=== PATIENT | male | born 1955 | race Caucasian/White ===

== ENCOUNTER 2018-03-10 16:54 | Inpatient (IN) | payer MEDICAID, OTHER ==
[~2018-03-10] VITALS: Ht 160 cm; Wt 62.6 kg
[2018-03-10] MEDS ORDERED: CLOPIDOGREL 75MG TABLET PO ONE (19:00)
[2018-03-10 19:24] LABS: HEMATOCRIT. 35.9 % (42.0-52.0); HEMOGLOBIN. 12.7 g/dL (14.0-18.0); MEAN CORPUSCULAR HEMOGLOBIN 32.9 pg (28.0-32.0); MEAN CORPUSCULAR VOLUME 93.1 fL (80.0-94.0); MEAN PLATELET VOLUME 8.5 fl (7.4-10.4); PLATELET 146 x1000/uL (130-400); RED BLOOD CELL COUNT 3.86 mill/uL (4.7-6.1); RED CELL DISTRIBUTION WIDTH 13.4 % (11.6-14.6)
[2018-03-10 19:36] LABS: CHLORIDE 91 mEq/L (98-107)
[2018-03-10 19:43] LABS: D-DIMER 1.18 mg/L FEU (<0.50); INR 1.1; PARTIAL THROMBOPLASTIN TIME 31.6 sec (23.4-31.0); PROTHROMBIN TIME 11.4 sec (9.1-11.1)
[2018-03-10 19:50] LABS: PLATELET ESTIMATE NORMAL
[2018-03-10] MEDS ORDERED: IOHEXOL-350 100 ML BOTTLE ONE (22:50)
[2018-03-11 00:45] VITALS: BP 140/77
[2018-03-11] MEDS ORDERED: HYDROCODONE/ACETAMINOPHEN 5/325MG TABLET PO PRN (02:00)
[2018-03-11] MEDS ORDERED: DEXTROSE 50% WATER 50ML SYRINGE IV PRN (02:00)
[2018-03-11] MEDS: ALPRAZOLAM 0.25 MG TABLET PO PRN (02:42)
[2018-03-11 04:00] VITALS: BP 145/81
[2018-03-11] MEDS: INSULIN LISPRO 100 UNITS/ML SUBCUT SCH ×4 (06:27→21:04)
[2018-03-11] MEDS: BLOOD SUGAR DIAGNOSTIC STRIP TEST SCH ×4 (06:27→21:04)
[2018-03-11 06:58] LABS: CREATINE KINASE 108 IU/L (39-308); CREATINE KINASE MB FRACTION 1.9 ng/mL (0.5-3.6)
[2018-03-11 08:00] VITALS: BP 125/70
[2018-03-11] MEDS: HEPARIN 5000 UNITS/ML VIAL SUBCUT SCH ×2 (09:16→21:01)
[2018-03-11 11:55] VITALS: BP 143/88
[2018-03-11] MEDS: FUROSEMIDE 40MG/4ML VIAL IVP SCH (12:38)
[2018-03-11] MEDS ORDERED: METF-815 PO (14:11)
[2018-03-11] MEDS ORDERED: LISI-604 MT (14:19)
[2018-03-11] MEDS ORDERED: ASPI-1159 MT (14:19)
[2018-03-11] MEDS ORDERED: ALPR-393 MT (14:19)
[2018-03-11] MEDS ORDERED: SPIR25TA6 MT (14:19)
[2018-03-11] MEDS ORDERED: CARV12.545 MT (14:19)
[2018-03-11] MEDS ORDERED: FURO40TA5 MT (14:19)
[2018-03-11] MEDS ORDERED: SIMV20TA6 MT (14:19)
[2018-03-11 16:00] VITALS: BP 127/81
[2018-03-11 16:50] LABS: CREATINE KINASE 113 IU/L (39-308); CREATINE KINASE MB FRACTION 1.6 ng/mL (0.5-3.6)
[2018-03-11 23:43] LABS: CREATINE KINASE 108 IU/L (39-308); CREATINE KINASE MB FRACTION 1.8 ng/mL (0.5-3.6)
[2018-03-12] VITALS: BP 129/78
[2018-03-12 04:00] VITALS: BP 156/96
[2018-03-12] MEDS: BLOOD SUGAR DIAGNOSTIC STRIP TEST SCH ×4 (06:11→20:23)
[2018-03-12 06:47] LABS: BASOPHILS % 0.7 % (0.0-2.0); EOSINOPHILS % 4.9 % (0.0-5.0); HEMATOCRIT. 38.6 % (42.0-52.0); HEMOGLOBIN. 13.5 g/dL (14.0-18.0); LYMPHOCYTES % 23.5 % (20.0-50.0); MEAN CORPUSCULAR HEMOGLOBIN 32.9 pg (28.0-32.0); MEAN CORPUSCULAR VOLUME 93.8 fL (80.0-94.0); MEAN PLATELET VOLUME 8.7 fl (7.4-10.4); MONOCYTES % 14.3 % (2.0-8.0); NEUTROPHILS % 56.6 % (40.0-76.0); PLATELET 156 x1000/uL (130-400); RED BLOOD CELL COUNT 4.11 mill/uL (4.7-6.1); RED CELL DISTRIBUTION WIDTH 13.2 % (11.6-14.6)
[2018-03-12 07:22] LABS: CHLORIDE 95 mEq/L (98-107)
[2018-03-12] MEDS: INSULIN LISPRO 100 UNITS/ML SUBCUT SCH ×4 (07:26→20:32)
[2018-03-12 07:31] LABS: HDL CHOLESTEROL 31 mg/dL (40-59); LDL CHOLESTEROL 63 mg/dL (5-100)
[2018-03-12 08:00] VITALS: BP 135/78
[2018-03-12] MEDS: FUROSEMIDE 40MG/4ML VIAL IVP SCH (08:09)
[2018-03-12] MEDS: HEPARIN 5000 UNITS/ML VIAL SUBCUT SCH ×2 (08:10→20:34)
[2018-03-12] MEDS: CARVEDILOL 12.5MG TABLET PO SCH ×2 (10:23→20:33)
[2018-03-12] MEDS: LISINOPRIL 20MG TABLET PO SCH ×2 (10:43→20:39)
[2018-03-12] MEDS: ALPRAZOLAM 0.25 MG TABLET PO PRN ×2 (10:43→21:50)
[2018-03-12] MEDS: ASPIRIN 81MG TABLET PO SCH (10:43)
[2018-03-12 12:00] VITALS: BP 139/78
[2018-03-12 16:26] VITALS: BP 135/83
[2018-03-12] MEDS ORDERED: MEDICATION NOT ON FORMULARY EA (Lisinopril 1 TAB) MT SCH (17:00)
[2018-03-12 20:00] VITALS: BP 139/85
[2018-03-12] MEDS: ATORVASTATIN CALCIUM 10MG TABLET PO SCH (20:32)
[2018-03-13] VITALS: BP 105/64
[2018-03-13 04:00] VITALS: BP 143/72
[2018-03-13] MEDS: BLOOD SUGAR DIAGNOSTIC STRIP TEST SCH ×4 (06:15→20:24)
[2018-03-13] MEDS: INSULIN LISPRO 100 UNITS/ML SUBCUT SCH ×4 (06:15→20:43)
[2018-03-13 06:17] LABS: BASOPHILS % 0.7 % (0.0-2.0); EOSINOPHILS % 4.1 % (0.0-5.0); HEMATOCRIT. 38.9 % (42.0-52.0); HEMOGLOBIN. 13.5 g/dL (14.0-18.0); MEAN CORPUSCULAR HEMOGLOBIN 32.4 pg (28.0-32.0); MEAN CORPUSCULAR VOLUME 93.1 fL (80.0-94.0); MEAN PLATELET VOLUME 8.6 fl (7.4-10.4); MONOCYTES % 11.7 % (2.0-8.0); NEUTROPHILS % 55.5 % (40.0-76.0); PLATELET 164 x1000/uL (130-400); RED BLOOD CELL COUNT 4.18 mill/uL (4.7-6.1); RED CELL DISTRIBUTION WIDTH 12.8 % (11.6-14.6)
[2018-03-13 07:05] LABS: CHLORIDE 89 mEq/L (98-107)
[2018-03-13 08:00] VITALS: BP 156/88
[2018-03-13] MEDS: LISINOPRIL 20MG TABLET PO SCH ×2 (08:16→20:36)
[2018-03-13] MEDS: CARVEDILOL 12.5MG TABLET PO SCH ×2 (08:16→20:36)
[2018-03-13] MEDS: ASPIRIN 81MG TABLET PO SCH (08:16)
[2018-03-13] MEDS: HEPARIN 5000 UNITS/ML VIAL SUBCUT SCH ×2 (08:17→20:37)
[2018-03-13] MEDS: FUROSEMIDE 40MG/4ML VIAL IVP SCH (08:17)
[2018-03-13] MEDS ORDERED: REGADENOSON 0.4 MG/5 ML IV NR (10:30)
[2018-03-13 12:00] VITALS: BP 150/83
[2018-03-13] MEDS: ALPRAZOLAM 0.25 MG TABLET PO PRN ×2 (12:12→22:57)
[2018-03-13 16:00] VITALS: BP_SYST 142; BP_DIAS 83; BP_DIAS 85
[2018-03-13 20:00] VITALS: BP 130/79
[2018-03-13] MEDS: ATORVASTATIN CALCIUM 10MG TABLET PO SCH (20:36)
[2018-03-14] VITALS: BP 116/71
[2018-03-14 04:00] VITALS: BP 111/45
[2018-03-14] MEDS: BLOOD SUGAR DIAGNOSTIC STRIP TEST SCH ×4 (05:56→21:38)
[2018-03-14] MEDS: INSULIN LISPRO 100 UNITS/ML SUBCUT SCH ×4 (05:56→22:01)
[2018-03-14 08:00] VITALS: BP 161/88
[2018-03-14] MEDS ORDERED: REGADENOSON 0.4 MG/5 ML IV ONE (08:31)
[2018-03-14 09:40] LABS: SODIUM URINE RANDOM 17 mEq/L
[2018-03-14] MEDS: CARVEDILOL 12.5MG TABLET PO SCH ×2 (09:45→21:57)
[2018-03-14] MEDS: LISINOPRIL 20MG TABLET PO SCH ×2 (09:45→21:58)
[2018-03-14] MEDS: ASPIRIN 81MG TABLET PO SCH (09:45)
[2018-03-14] MEDS: HEPARIN 5000 UNITS/ML VIAL SUBCUT SCH ×2 (09:45→21:58)
[2018-03-14 12:00] VITALS: BP 127/71
[2018-03-14 16:00] VITALS: BP 114/64
[2018-03-14 16:02] LABS: CHLORIDE 89 mEq/L (98-107)
[2018-03-14 20:00] VITALS: BP 113/69
[2018-03-14] MEDS: ATORVASTATIN CALCIUM 10MG TABLET PO SCH (21:57)
[2018-03-15 00:19] VITALS: BP 98/64
[2018-03-15 03:46] VITALS: BP 109/69
[2018-03-15 06:09] VITALS: BP 148/84
[2018-03-15] MEDS: BLOOD SUGAR DIAGNOSTIC STRIP TEST SCH ×2 (06:10→12:17)
[2018-03-15] MEDS: INSULIN LISPRO 100 UNITS/ML SUBCUT SCH ×2 (06:38→13:16)
[2018-03-15 08:00] VITALS: BP 145/75
[2018-03-15] MEDS: CARVEDILOL 12.5MG TABLET PO SCH (08:46)
[2018-03-15] MEDS: LISINOPRIL 20MG TABLET PO SCH (08:47)
[2018-03-15] MEDS: ASPIRIN 81MG TABLET PO SCH (08:47)
[2018-03-15] MEDS: ALPRAZOLAM 0.25 MG TABLET PO PRN (08:47)
[2018-03-15] MEDS: HEPARIN 5000 UNITS/ML VIAL SUBCUT SCH (08:47)
[2018-03-15] MEDS ORDERED: FUROSEMIDE 40MG TABLET PO SCH (09:00)
[2018-03-15 12:00] VITALS: BP 130/74
[2018-03-15 14:09] VITALS: BP 122/82
== END 2018-03-15 16:05 | disposition home or self-care (01) | DRG 203 ==
LOC: ER 20:40 → 8WST 22:30 → EDBEDREQ 22:33 → EDBEDREQTM 22:33 → ENRESERV 23:23
PROVIDERS: ADMIT Internal Medicine; ATTEND Internal Medicine
DX: M94.0 Chondrocostal junction syndrome [Tietze] (principal); I47.2 Ventricular tachycardia; I50.23 Acute on chronic systolic (congestive) heart failure; I25.10 Atherosclerotic heart disease of native coronary artery without angina pectoris; E87.1 Hypo-osmolality and hyponatremia; I42.9 Cardiomyopathy, unspecified; I11.0 Hypertensive heart disease with heart failure; R42 Dizziness and giddiness; M19.90 Unspecified osteoarthritis, unspecified site; I45.9 Conduction disorder, unspecified; E11.9 Type 2 diabetes mellitus without complications; F41.9 Anxiety disorder, unspecified; Z98.61 Coronary angioplasty status; I25.2 Old myocardial infarction; Z88.0 Allergy status to penicillin; Z88.6 Allergy status to analgesic agent
CPT/HCPCS: 36415; 71045; 71275; 78452; 80048; 80061; 82550; 82553; 82962; 83036; 83735; 83880; 83935; 84300; 84443; 84484; 85379; 93005; 93017; 93306; 99285; A6261; A9500; J1644; J1815; J1940; J2785; Q9967

== ENCOUNTER 2019-06-01 12:04 | Inpatient (IN) | payer MEDICARE, MEDICAID ==
[~2019-06-01] VITALS: Ht 172.7 cm; Wt 67.6 kg
[~2019-06-01 12:04] MED LIST: ALPR-393 PO; ASPI-1497 MT; CARV12.545 MT; FURO40TA5 MT; LISI-604 MT; METF-815 PO; SIMV-43 MT; SPIR25TA6 MT
[2019-06-01] MEDS ORDERED: HYDRALAZINE 20MG/ML VIAL IV ONE (13:00)
[2019-06-01 13:14] LABS: BASOPHILS % 0.9 % (0.0-2.0); EOSINOPHILS % 3.6 % (0.0-5.0); HEMATOCRIT. 36.2 % (42.0-52.0); HEMOGLOBIN. 12.9 g/dL (14.0-18.0); LYMPHOCYTES % 20.1 % (20.0-50.0); MEAN CORPUSCULAR HEMOGLOBIN 32.6 pg (28.0-32.0); MEAN CORPUSCULAR VOLUME 91.4 fL (80.0-94.0); NEUTROPHILS % 69.4 % (40.0-76.0); PLATELET 166 x1000/uL (130-400); RED BLOOD CELL COUNT 3.96 mill/uL (4.7-6.1); RED CELL DISTRIBUTION WIDTH 13.1 % (11.6-14.6)
[2019-06-01 13:21] LABS: CHLORIDE 95 mEq/L (98-107)
[2019-06-01] MEDS ORDERED: SODIUM CHLORIDE 0.9% 1,000 ML IV ONE (13:41)
[2019-06-01 22:22] VITALS: BP 169/86
[2019-06-02] MEDS ORDERED: PROP10TA10 PO
[2019-06-02] MEDS ORDERED: CLOP75TA4 PO
[2019-06-02] MEDS ORDERED: CLONIDINE 0.1MG TABLET PO PRN (00:15)
[2019-06-02] MEDS: SODIUM CHLORIDE 0.9% 1,000 ML IV SCH ×2 (01:57→17:45)
[2019-06-02 04:00] VITALS: BP 163/73
[2019-06-02 07:52] LABS: BASOPHILS % 0.7 % (0.0-2.0); EOSINOPHILS % 2.8 % (0.0-5.0); HEMATOCRIT. 36.7 % (42.0-52.0); LYMPHOCYTES % 28.8 % (20.0-50.0); MEAN CORPUSCULAR HEMOGLOBIN 32.7 pg (28.0-32.0); MEAN CORPUSCULAR VOLUME 92.5 fL (80.0-94.0); MEAN PLATELET VOLUME 8.8 fl (7.4-10.4); MONOCYTES % 11.4 % (2.0-8.0); NEUTROPHILS % 56.3 % (40.0-76.0); PLATELET 164 x1000/uL (130-400); RED BLOOD CELL COUNT 3.97 mill/uL (4.7-6.1)
[2019-06-02 08:08] LABS: CHLORIDE 100 mEq/L (98-107)
[2019-06-02 08:30] VITALS: BP 103/56
[2019-06-02] MEDS ORDERED: PROPRANOLOL HCL 10MG TABLET PO SCH (09:00)
[2019-06-02] MEDS: CLOPIDOGREL 75MG TABLET PO SCH (09:18)
[2019-06-02] MEDS ORDERED: CLOPIDOGREL 75MG TABLET PO SCH (11:30)
[2019-06-02 11:44] VITALS: BP 134/64
[2019-06-02] MEDS: CARVEDILOL 12.5MG TABLET PO SCH ×2 (11:47→22:34)
[2019-06-02] MEDS: LISINOPRIL 20MG TABLET PO SCH (11:47)
[2019-06-02] MEDS ORDERED: ALPRAZOLAM 0.25 MG TABLET PO PRN (15:00)
[2019-06-02 16:00] VITALS: BP 121/82
[2019-06-02] MEDS ORDERED: MAGNESIUM/ALUMINUM HYDROXIDE/SIMETHICONE 30ML UDC PO PRN (16:45)
[2019-06-02 20:00] VITALS: BP 113/52
[2019-06-03] VITALS (7 sets, daily range): BP systolic 125–173; BP diastolic 67–90
[2019-06-03 00:13] LABS: SODIUM URINE RANDOM 66 mEq/L
[2019-06-03 00:20] LABS: *AMPHETAMINES SCREEN URINE NEGATIVE (NEGATIVE); *BARBITURATES SCREEN URINE NEGATIVE (NEGATIVE); *BENZODIAZEPINES SCREEN URINE NEGATIVE (NEGATIVE)
[2019-06-03 00:21] LABS: *COCAINE SCREEN URINE NEGATIVE (NEGATIVE); CANNABINOID URINE SCREEN NEGATIVE (NEGATIVE); METHADONE URINE SCREEN NEGATIVE (NEGATIVE); OPIATES URINE SCREEN NEGATIVE (NEGATIVE); PHENCYCLIDINE URINE SCREEN NEGATIVE (NEGATIVE)
[2019-06-03] MEDS: SODIUM CHLORIDE 0.9% 1,000 ML IV SCH (06:34)
[2019-06-03 07:18] LABS: BASOPHILS % 0.6 % (0.0-2.0); EOSINOPHILS % 3.2 % (0.0-5.0); HEMATOCRIT. 36.6 % (42.0-52.0); HEMOGLOBIN. 12.6 g/dL (14.0-18.0); LYMPHOCYTES % 25.8 % (20.0-50.0); MEAN CORPUSCULAR HEMOGLOBIN 32.2 pg (28.0-32.0); MEAN CORPUSCULAR VOLUME 93.3 fL (80.0-94.0); MEAN PLATELET VOLUME 8.5 fl (7.4-10.4); MONOCYTES % 9.9 % (2.0-8.0); NEUTROPHILS % 60.5 % (40.0-76.0); PLATELET 161 x1000/uL (130-400); RED BLOOD CELL COUNT 3.93 mill/uL (4.7-6.1); RED CELL DISTRIBUTION WIDTH 13.5 % (11.6-14.6)
[2019-06-03 07:54] LABS: CHLORIDE 102 mEq/L (98-107)
[2019-06-03 08:00] LABS: PHOSPHORUS 2.9 mg/dL (2.5-4.9)
[2019-06-03] MEDS: CLOPIDOGREL 75MG TABLET PO SCH (08:33)
[2019-06-03] MEDS: LISINOPRIL 20MG TABLET PO SCH (08:34)
[2019-06-03] MEDS: CARVEDILOL 12.5MG TABLET PO SCH ×2 (08:35→19:48)
[2019-06-03] MEDS ORDERED: GUAIFENESIN 200MG/10ML SUGAR FREE UDC PO PRN (14:00)
== END 2019-06-03 21:52 | disposition home health service (06) | DRG 640 ==
LOC: ER 12:32 → 7WST 14:09 → ENRESERV 21:47 → ER 22:22
PROVIDERS: ADMIT Internal Medicine; ATTEND Internal Medicine
DX: E87.1 Hypo-osmolality and hyponatremia (principal); G93.41 Metabolic encephalopathy; I50.22 Chronic systolic (congestive) heart failure; I42.9 Cardiomyopathy, unspecified; I16.0 Hypertensive urgency; M19.90 Unspecified osteoarthritis, unspecified site; G90.8 Other disorders of autonomic nervous system; D64.9 Anemia, unspecified; E87.8 Other disorders of electrolyte and fluid balance, not elsewhere classified; F41.9 Anxiety disorder, unspecified; E11.9 Type 2 diabetes mellitus without complications; I05.8 Other rheumatic mitral valve diseases; I25.10 Atherosclerotic heart disease of native coronary artery without angina pectoris; I11.0 Hypertensive heart disease with heart failure; I25.2 Old myocardial infarction; Z95.810 Presence of automatic (implantable) cardiac defibrillator; Z98.61 Coronary angioplasty status; Z88.0 Allergy status to penicillin; Z79.899 Other long term (current) drug therapy; Z79.02 Long term (current) use of antithrombotics/antiplatelets; Z79.82 Long term (current) use of aspirin
CPT/HCPCS: 36415; 71045; 80048; 80053; 80305; 82533; 82962; 83735; 83880; 83935; 84100; 84300; 84443; 84484; 85025; 93005; 93306; 99285; J7030

== ENCOUNTER → 2023-01-05 | Outpatient (CLI) | payer MEDICARE, MEDICAID ==
[~2023-01-05] MED LIST changes: -ASPI-1497 MT; +CLOP-31 PO; -LISI-604 MT; +LISI20TA31 MT; -METF-815 PO; +METF-873 PO; +PROP10TA10 PO
[2023-01-05 10:28] LABS: UREA NITROGEN BLOOD 20 mg/dL (7-21)
== END | disposition home or self-care (01) ==
LOC: LAB 09:40
PROVIDERS: ATTEND Internal Medicine Gastroenterology
DX: D64.9 Anemia, unspecified (principal); K62.5 Hemorrhage of anus and rectum
CPT/HCPCS: 36415; 82565; 84520

== ENCOUNTER 2025-01-29 13:12 | Emergency (ER) | payer MEDICARE, MEDICAID ==
[~2025-01-29] VITALS: Ht 154.9 cm; Wt 62.0 kg
[~2025-01-29 13:12] MED LIST changes: +METF-1149 PO; -METF-873 PO
[2025-01-29 13:17] VITALS: O2SAT 95
[2025-01-29 15:25] LABS: BASOPHILS % 0.6 % (0.0-2.0); EOSINOPHILS % 2.6 % (0.0-5.0); HEMATOCRIT. 35.9 % (42.0-52.0); HEMOGLOBIN. 12.3 g/dL (14.0-18.0); LYMPHOCYTES % 16.7 % (20.0-50.0); MEAN PLATELET VOLUME 8.1 fl (7.4-10.4); MONOCYTES % 6.7 % (2.0-8.0); NEUTROPHILS % 73.4 % (40.0-76.0); PLATELET 159 x1000/uL (130-400); RED BLOOD CELL COUNT 3.87 mill/uL (4.7-6.1); RED CELL DISTRIBUTION WIDTH 14.6 % (11.6-14.6)
[2025-01-29 15:37] LABS: CREATININE 1.0 mg/dL (0.6-1.3); UREA NITROGEN BLOOD 18 mg/dL (9-23)
[2025-01-29 15:39] LABS: ASPARTATE AMINOTRANSFERASE 43 IU/L (<34); BILIRUBIN DIRECT 0.2 mg/dL (<=3.0)
[2025-01-29 15:40] LABS: BILIRUBIN TOTAL 0.5 mg/dL (0.1-1.0); PROTEIN TOTAL 7.6 g/dL (6.0-8.3)
[2025-01-29 15:42] LABS: INR 1.0
[2025-01-29 16:08] LABS: TROPONIN I HIGH SENSITIVITY 13 ng/L (3.0-53)
[2025-01-29] MEDS ORDERED: IBUP-2028 MT (17:15)
[2025-01-29 17:35] VITALS: TEMP 36.9; O2SAT 99
[2025-01-29 17:43] VITALS: BP 149/62; PULSE 75; RESP 16
[2025-01-29] MEDS: KETOROLAC 15MG/ML VIAL IV ONE (17:43)
== END 2025-01-29 17:40 | disposition home or self-care (01) ==
LOC: ER 13:12 → CMPBEDREQ 01-30 19:25
DX: E11.51 Type 2 diabetes mellitus with diabetic peripheral angiopathy without gangrene (principal); I11.0 Hypertensive heart disease with heart failure; I50.9 Heart failure, unspecified; M17.12 Unilateral primary osteoarthritis, left knee; Z79.02 Long term (current) use of antithrombotics/antiplatelets; Z79.84 Long term (current) use of oral hypoglycemic drugs; Z79.899 Other long term (current) drug therapy; Z88.0 Allergy status to penicillin; Z95.0 Presence of cardiac pacemaker
CPT/HCPCS: 99285; 93971; 80076; 80048; 83690; 83735; 85025; 85610; 85730; 84484; 36415; 73562; 93005; J1885